=== PATIENT | male | born 1935 ===

== ENCOUNTER 2017-07-07 07:31 | Day surgery (SDC) | payer OTHER ==
[2017-07-06 01:05] VITALS: BMI 25.1
[2017-07-07] MEDS ORDERED: Verapamil 0 ML ONE (08:05)
[2017-07-07] MEDS ORDERED: Lidocaine 2% Inj (20ml) ONE (08:05)
[2017-07-07] MEDS ORDERED: Iodixanol 320 MG/ML 200 ML BOTTLE IV ONE (08:06)
[2017-07-07] MEDS ORDERED: Midazolam 2 MG/2 ML VIAL ONE ×3 (08:06→09:09)
[2017-07-07] MEDS ORDERED: Adenosine 90 mg/30mL IV ONE (08:07)
[2017-07-07] MEDS ORDERED: Bacitracin 500 Units/gm Oint Foilpak UD TOP ONE (09:45)
[2017-07-07] MEDS ORDERED: Sodium Chloride 0.9% 1,000 ML IV SCH (11:30)
--- NOTE | 2017-07-07 12:15 | CARDCATH ---
PROCEDURE DATE: 07/07/2017 INDICATION: Reginald Reyes is an 82-year-old male who presented to [facility] with [id number] [place]. The patient was brought to [facility] for further evaluation and treatment for [id number] [place]. PROCEDURE PERFORMED: Left heart catheterization with selective left and right coronary angiogram via left distal radial approach, 6-Beninese distal radial arterial access in the left distal radial artery, wrist band for hemostasis. TECHNIQUES OF PROCEDURE: After obtaining informed consent, the patient was brought to the cardiac cath suite in post-absorptive, non-sedated state. The patient was prepped and draped in the usual sterile fashion. A 2% lidocaine was used for infiltration of anesthesia. Using modified Seldinger technique, a 6-Beninese left distal radial arterial access was obtained. Subsequently, under fluoroscopic guidance, J-wire was advanced. A JR4 diagnostic catheter used to engage the right coronary system. Angiograms were obtained in different orthogonal views. Subsequently, over exchange length J-, JR4 was exchanged with a JL4 diagnostic catheter. Angiograms of the left coronary system were obtained in different orthogonal views. Subsequently, the LV gram was obtained in the MARTINEZ view, hemodynamics were obtained and pullback gradients were noted. HEMODYNAMIC FINDINGS: Left ventricular end-diastolic pressure was 18 mmHg. There was no gradient noted upon the aortic valve pullback. No AI, no MR. Left ventricular ejection fraction estimated to be 60-65%. CORONARY ANATOMY: The left main, large-sized vessel has a distal 40% stenosis that bifurcates into left anterior descending, ramus intermedius and left circumflex coronary artery. Left anterior descending is a large-sized vessel, has a proximal high-grade 95% stenosis and mid and distal 85 and 90 stenosis, gives off 2 medium-sized diagonal branches, which have diffuse 50% stenosis. Left circumflex runs in the AV grove has a proximal 90% stenosis, given off the obtuse marginal branches, which have diffuse 60-70% stenosis. Ramus intermedius diffusely diseased, 99% stenosis. RCA has a proximal high-grade diffuse 95% stenosis up to the mid segment and a distal 90% stenosis. Ostial PDA has 90% stenosis. IMPRESSION: Severe triple vessel disease, normal left ventricular ejection fraction. RECOMMENDATIONS: The patient is to be transferred emergently to [facility] for an emergent CABG by Dr. Florentino Gustafson and Dr. Noel Kirk. William Sanchez MD cc: Spike Barlow MD, Abdoulaye Chavez MD.
--- NOTE | 2017-07-07 12:29 | PN ---
DATE: 07/07/2017 SUBJECTIVE: The patient was transferred to [facility] this morning, underwent cardiac catheterization by Dr. Sanchez which revealed severe 3-vessel coronary artery disease that is not amenable for intervention. The patient is currently in telemetry unit. He denies any chest pain. No bleeding. PHYSICAL EXAMINATION VITAL SIGNS: Stable. HEENT: Normocephalic. CHEST: Clear. HEART: S1 and S2 irregular. EXTREMITIES: No edema. ASSESSMENT AND PLAN: 1. Severe 3-vessel coronary artery disease. 2. Status post myocardial infarction. 3. Hypertension. RECOMMENDATIONS: Resume aspirin and Crestor. Resume subcutaneous Lovenox. Discontinue Plavix. The plan is to transfer the patient by Dr. Sanchez to cardiothoracic surgeon at [facility] for coronary artery bypass surgery. Spike Barlow MD
[2017-07-07] MEDS ORDERED: Bacitracin 500 Units/gm Oint Foilpak UD ONE (15:11)
[2017-07-07 16:07] VITALS: BP 154/77; PULSE 72; RESP 18; TEMP 98.2
== END 2017-07-07 16:06 | disposition short-term general hospital (02) ==
LOC: CATH 07:31 → 2RNO 09:58 → CATH 16:06
PROVIDERS: ATTEND Internal Medicine Interventional Cardiology
DX: I25.10 Atherosclerotic heart disease of native coronary artery without angina pectoris (principal); I10 Essential (primary) hypertension; I25.2 Old myocardial infarction
CPT/HCPCS: 93458; 99152; 99153; C1769; C1887 ×2; C1894; J0153; J1644 ×2; J2250; J3010; J7030; J7040; Q9966